=== PATIENT | female | born 1970 | race Caucasian/White ===

== ENCOUNTER 2020-06-17 18:08 | Emergency (ER) | payer MEDICARE, OTHER ==
[~2020-06-17] VITALS: Ht 160 cm; Wt 90.9 kg
[2020-06-17 18:12] VITALS: BP 201/118; Ht 160 cm; Wt 90.9 kg
[2020-06-17 18:43] LABS: BASOPHILS 0.1 % (0-2); EOSINOPHILS 0.6 % (0-7); HEMATOCRIT 35.4 % (36.0-48.0); HEMOGLOBIN 11.2 g/dL (12-16); IMMATURE GRANULOCYTES 0.5 % (0-5); LYMPHOCYTE ABS# 1.16 10x3/uL (1.18-3.74); MCH 32.2 pg (26.0-34.0); MCHC 31.6 g/dL (31.0-37.0); MCV 101.7 fL (80.0-100.0); MEAN PLATELET VOLUME 10.3 fL (7.4-10.4); MONOCYTES 8.6 % (2-11); NEUTROPHIL ABS# 10.41 10x3/uL (1.56-6.13); NEUTROPHILS 81.2 % (40-80); PLATELET COUNT 298 10x3/uL (130-400); RBC 3.48 10x6/uL (4.00-5.40); RDW 16.8 % (11.5-14.5); WBC 12.8 10x3/uL (4.8-10.8)
[2020-06-17 18:51] LABS: APTT 28.9 SECONDS (22.8-39.4); CALC OSMOLALITY 288 mosm/kg (275-300); CALCIUM 8.4 mg/dL (8.5-10.1); CARBON DIOXIDE 29.2 mmol/L (21.0-32.0); CHLORIDE - SERUM 107 mmol/L (98-107); CREATININE - SERUM 1.3 mg/dL (0.6-1.3); GLUCOSE 92 mg/dL (74-106); POTASSIUM - SERUM 4.5 mmol/L (3.5-5.1); PROTIME 12.2 SECONDS (11.6-15.0); SODIUM 143 mmol/L (136-145); UREA NITROGEN 25 mg/dL (7-18); eGFR NON AFRICAN AMERICAN 46 mL/min (90-120)
[2020-06-17 18:53] LABS: D-DIMER-QUANTITATIVE 1.27 ug/mLFEU (0.20-0.54)
[2020-06-17 19:08] LABS: ALBUMIN 2.8 g/dL (3.4-5.0); ALKALINE PHOSPHATASE 104 U/L (30-120); ALT (SGPT) 31 U/L (10-68); BILIRUBIN - TOTAL 0.26 mg/dL (0.2-1.3); CKMB 1.5 U/L (0.0-3.6); CREATINE KINASE 111 UL (21-215); PRO BNP 2792 pg/mL (0-125); PROTEIN - SERUM 5.6 g/dL (6.4-8.2); TROPONIN-I < 0.017 ng/mL (0.000-0.060)
[2020-06-17] MEDS ORDERED: DOXYCYCLINE HY100 M2 PO (23:12)
[2020-06-17] MEDS ORDERED: AUGMENTIN 875-11 TAB PO (23:12)
== END 2020-06-17 23:31 | disposition home or self-care (01) ==
LOC: D.ER 18:08
PROVIDERS: Student in an Organized Health Care Education/Training Program
DX: I82.402 Acute embolism and thrombosis of unspecified deep veins of left lower extremity (principal); J18.9 Pneumonia, unspecified organism; I10 Essential (primary) hypertension; E03.9 Hypothyroidism, unspecified; Z72.0 Tobacco use